=== PATIENT | male | born 1940 | race Caucasian/White ===

== ENCOUNTER 2023-01-07 07:53 | Day surgery (SDC) | payer MEDICARE, OTHER ==
[~2023-01-07] VITALS: Ht 172.7 cm; Wt 93.2 kg
[~2023-01-07 07:53] MED LIST: FISH OIL 1,001000 MG PO; LIPITOR40 MG PO; VENTOLIN HFA18 GM INH
[2023-01-07 08:16] VITALS: BP 139/88
[2023-01-07] MEDS ORDERED: SYMBICORT 16010.2 GM INH (08:20)
--- NOTE | 2023-01-07 10:37 | NUR ---
01/07/23 Rachel Calvillo 1027- PT ARRIVES TO PACU, LEFT LATERAL POSITION. LR INFUSING TO RH IV. O2 AT 3L PER NC, ALL MONITORS APPLIED. ABD ROUND AND FIRM, ENCOURAGED TO PASS GAS TO DECREASE CRAMPING. PT DENIES PAIN AND NAUSEA AT THIS TIME. PT AWAKE ON ARRIVAL TO PACU, BUT RESTING INTERMITTENTLY. WILL CONTINUE TO MONITOR. 1035- PT AWAKE OFF AND ON, CONTINUES TO DENY ANY COMPLAINTS AT THIS TIME. IV FLUIDS CONTINUE TO INFUSE, O2 REMAINS IN PLACE.
[2023-01-07 11:09] VITALS: BP 147/74
--- NOTE | 2023-01-10 08:29 | OR ---
[facility] [address], [place] [address] Signed DATE OF OPERATION: 01/07/2023 SURGEON: Barb Tobar MD PREOPERATIVE DIAGNOSES: 1. 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 2. Family history of colon cancer (brother). POSTOPERATIVE DIAGNOSES: 1. 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 2. Antral gastritis. 3. Extensive sigmoid and left-sided diverticulosis. 4. Multiple polyps (five). PROCEDURES: 1. Esophagogastroduodenoscopy with biopsy. 2. Total colonoscopy to cecum with cold snare polypectomy x2, cold morcellation polypectomy x3. ANESTHESIA: Intravenous sedation fentanyl 150 mcg and Versed 5 mg total. INDICATIONS: This 82-year-old white man is a patient by DELROY Ordonez from [place], [place] and is referred initially for upper endoscopy. The patient has had thrush related to persistent use of Advair under the direction of others, having been treated for eosinophilic esophagitis. He had been seen in 2016 and underwent upper endoscopy, ended with dilation from my understanding and had the eosinophilic esophagitis as well. He has not recently been taking topical steroids. He has been taking PPI medication in the past; he currently takes Symbicort inhaler on a daily basis by inhalation and not swallowing. Additionally, the patient has a family history of colon cancer in his brother. The patient was unaware of this, though I was aware of his brother who had it. On that basis, colonoscopy was additionally recommended. The risk of bleeding, infection, and perforation related upper endoscopy and colonoscopy was reviewed with him. He understands and wished to proceed. FINDINGS: Electronically Signed By: BARB TOBAR MD 01/10/23 0829 PATIENT NAME: BELKIS LORD OPERATIVE REPORT DATE OF : 44 REPORT #: [id number] PHYSICIAN: BARB TOBAR MD PCP: KHURRAM GUTIÉRREZ REPORT IS CONFIDENTIAL AND NOT TO BE RELEASED WITHOUT AUTHORIZATION [facility] [address], [place] [address] Signed Upper endoscopy did show a hiatal hernia and chronic distal esophagitis, but no sign of Lamb's epithelium stricture or stigmata of the eosinophilic esophagitis. There was antral gastritis. CLOtest was -30 minutes post procedure. As regards to colonoscopy, the colon was well prepped. There were numerous diverticula of the sigmoid and left colon. Additionally, five polyps in aggregate that were all excised without problem. DESCRIPTION OF PROCEDURE: The patient was brought to the endoscopy suite, given topical lidocaine hypopharyngeal anesthesia and placed in lateral decubitus position. He was given intravenous sedation to the point of slurred speech and nystagmus. A bite block was placed. An Olympus video upper endoscope was passed in the hypopharynx. The vocal cords were normal. Scope was passed in the esophagus throughout its length, it appeared normal, but there was mild inflammation of the distal esophagus. The scope was passed to the stomach, which was insufflated with air. Rugal folds were normal. The antrum had mild chronic inflammation. The pylorus was normal. Scope was passed through and into the duodenum, which was normal. Biopsies were taken of the duodenum to assess for celiac disease. The scope was withdrawn and biopsies then taken of the antrum for both LULU and pathologic testing. Retroflexed view was undertaken showing a sizable hiatal hernia. The scope was straightened withdrawn and biopsies then taken of the distal esophagus; there was no sign of stricture, neoplasm or Lamb's epithelium, however. Further withdrawal of scope to the mid esophagus did not show a feline type esophagus, though there was mild inflammation. Biopsies were obtained. The scope was then withdrawn and removed. Plans were then made for colonoscopy. Additional sedation was given and digital rectal examination was performed, which was normal. An Olympus video colonoscope was passed in the rectum and manipulated throughout the colon noting numerous diverticula of the sigmoid and left colon. Scope was ultimately advanced to the cecum. Ileocecal valve and appendiceal orifice were normal. A small polyp was noted in the junction between the cecum and the right colon. This was excised with cold snare technique. Further withdrawal showed another polyp in the mid ascending colon. This was excised with cold morcellation technique. Further withdrawal to the mid transverse colon showed another small polyp excised also by cold snare technique. Further withdrawal showed once again left colonic diverticulosis and in the region of the rectosigmoid, a small polyp adjacent to another small polyp, both excised with cold morcellation technique. Retroflexed view of the rectum was normal. Scope was removed and the patient was taken to the recovery room in good condition. CONCLUSION DIAGNOSES: Electronically Signed By: BARB TOBAR MD 01/10/23 0829 PATIENT NAME: BELKIS LORD OPERATIVE REPORT DATE OF : 44 REPORT #: [id number] PHYSICIAN: BARB TOBAR MD PCP: KHURRAM GUTIÉRREZ REPORT IS CONFIDENTIAL AND NOT TO BE RELEASED WITHOUT AUTHORIZATION [address] [address] Signed 1. Hiatal hernia with distal esophagitis. No clear evidence of eosinophilic esophagitis. Pathology pending. 2. Multiple polyps of colon and diverticulosis. PLAN: 1. We would initiate PPI medication, if the patient has symptoms related to his reflux. He is not currently taking PPI medication and the inhalational steroids he is taking are not swallowed, but rather inhaled. He has no current complaint of reflux symptoms or dysphagia. If he does, then would initiate PPI medication at minimum and consider fluticasone two puffs swallowed daily x3 weeks with one week break, particularly given prior history of yeast esophagitis. 2. Repeat colonoscopy in 5 years if clinically appropriate. Maintain a high-fiber diet. He will return to the ongoing care of DELROY Ordonez. MD DENTON Elizabeth/IAM /[id number] cc: DELROY Ordonez Copies: KHURRAM GUTIÉRREZ ~ Electronically Signed By: BARB TOBAR MD 01/10/23 0829 PATIENT NAME: BELKIS LORD OPERATIVE REPORT DATE OF : 44 REPORT #: [id number] PHYSICIAN: BARB TOBAR MD PCP: KHURRAM GUTIÉRREZ REPORT IS CONFIDENTIAL AND NOT TO BE RELEASED WITHOUT AUTHORIZATION
--- NOTE | 2023-01-13 15:09 | PATH ---
[facility] [address] [place], [place] [address] Signed SPECIMEN(S): A DUODENAL BIOPSY SPECIMEN(S): B ANTRUM BIOPSY SPECIMEN(S): C LOWER ESOPHAGEAL BIOPSY SPECIMEN(S): D MIDDLE ESOPHAGEAL BIOPSY SPECIMEN(S): E CECUM COLON POLYP SPECIMEN(S): F ASCENDING/RIGHT COLON POLYP SPECIMEN(S): G HEPATIC FLEXURECOLON POLYP SPECIMEN(S): H TRANSVERSE COLON POLYP SPECIMEN(S): I RECTOSIGMOID POLYP SPECIMEN SOURCE: A. DUODENAL BIOPSY B. ANTRUM BIOPSY C. LOWER ESOPHAGEAL BIOPSY D. MIDDLE ESOPHAGEAL BIOPSY E. CECUM COLON POLYP F. ASCENDING/RIGHT COLON POLYP G. HEPATIC FLEXURECOLON POLYP H. TRANSVERSE COLON POLYP I. RECTOSIGMOID POLYP CLINICAL HISTORY: Colonoscopy/EGD. History of eosinophilic esophagitis and dilation; family history of colon cancer (brother). FINAL PATHOLOGIC DIAGNOSIS: A. Duodenal biopsy: - Benign duodenal mucosa, negative for specific diagnostic abnormality. B. Antrum biopsy: - Benign gastric-type mucosa with focal slight chronic inflammation. - Negative for evidence of Helicobacter organisms on routine HE-stained sections. C. Lower esophageal biopsy: - Benign esophageal mucosa with reactive features with focal epithelial eosinophils (measuring up to 17 per high power field). - Negative for glandular mucosa. - See comment. D. Middle esophageal biopsy: - Benign esophageal mucosa, negative for increased epithelial eosinophils. E. Cecum colon polyp: - Tubular adenoma (one fragment). PATIENT NAME: BELKIS KENDALL LUZ PATHOLOGY DATE OF : 44 REPORT #: [id number] PHYSICIAN: MAZIN MARISCAL PCP: KHURRAM GUTIÉRREZ REPORT IS CONFIDENTIAL AND NOT TO BE RELEASED WITHOUT AUTHORIZATION [facility] [address] [place], [place] [address] Signed F. Ascending/right colon polyp: - Tubular adenoma (one fragment). G. Hepatic flexure colon polyp: - Tubular adenoma (three fragments). H. Transverse colon polyp: - Tubular adenoma (one fragment). I. Rectosigmoid polyp: - Hyperplastic polyp (two fragments). JR:clv COMMENT: C: The increased epithelial eosinophils at the distal esophagus can be seen with reflux esophagitis and eosinophilic esophagitis. Clinical correlation is requested. MICROSCOPIC EXAMINATION: Histologic sections of all submitted blocks are examined by light microscopy. These findings, together with the gross examination, support the pathologic diagnosis. GROSS DESCRIPTION: A. The specimen, labeled and designated "Elyssaagle, C, duodenum (NOS) biopsy," is received in formalin and consists of 2 vega soft tissue fragments measuring 0.3 x 0.5 cm in greatest dimension, all specimens are submitted entirely in (A1). B. The specimen, labeled and designated "Elyssaagle, C, stomach, antrum/pylorus biopsy," is received in formalin and consists of 1 vega soft tissue fragment measuring 0.2 x 0.4 cm and is submitted entirely in (B1). C. The specimen, labeled and designated "Elyssaagle, C, lower esophagus biopsy," is received in formalin and consists of 2 vega-white soft tissue fragments measuring 0.3 x 0.7 cm in greatest dimension, all specimens are submitted entirely in (C1). D. The specimen, labeled and designated "Elyssaagle, C, middle esophagus biopsy," is received in formalin and consists of 3 vega soft tissue fragments measuring 0.2 x 0.9 cm in greatest dimension, all specimens are submitted entirely in (D1). E. The specimen, labeled and designated "Lisa Kendall, cecum colon polyp," is received in formalin and consists of 1 vega soft polypoid tissue fragment measuring 0.5 x 0.6 cm and is submitted entirely in (E1). PATIENT NAME: BELKIS KENDALL PATHOLOGY DATE OF : 44 REPORT #: [id number] PHYSICIAN: MAZIN MARISCAL PCP: KHURRAM GUTIÉRREZ REPORT IS CONFIDENTIAL AND NOT TO BE RELEASED WITHOUT AUTHORIZATION [facility] [address] [place], [place] [address] Signed F. The specimen, labeled and designated "Lisa Kendall, ascending/right colon polyp," is received in formalin and consists of 2 vega soft tissue fragments measuring 0.3 x 0.3 cm in greatest dimension, all specimens are submitted entirely in (F1). G. The specimen, labeled and designated "Lisa Kendall, hepatic flexure colon polyp," is received in formalin and consists of 4 vega-brown soft tissue fragments measuring 0.4 x 0.4 cm in greatest dimension, all specimens are submitted entirely in (G1). H. The specimen, labeled and designated "Lisa Kendall, transverse colon polyp," is received in formalin and consists of 4 vega-brown soft tissue fragments measuring 0.2 x 0.4 cm in greatest dimension, all specimens are submitted entirely in (H1). I. The specimen, labeled and designated "Lisa Kendall, rectosigmoid polyp," is received in formalin and consists of 2 vega soft tissue fragments measuring 0.3 x 0.4 cm in greatest dimension, specimens are submitted entirely in (I1). MMA (under the direct supervision of a pathologist) The Gross Description was prepared using a voice recognition system. The report was reviewed for accuracy; however, sound-alike word errors, addition and/or deletions may occur. If there is any question about this report, please contact Client Services. PERFORMING LABORATORY: Technical component was performed by [facility], [address] [place] [id number] (CLIA# [id number]). Professional interpretation was performed by [facility] [address] [address] (CLIA#: [id number]). Diagnostician: Sammy Hawthorne MD Pathologist Electronically Signed 01/13/2023 Copies: ~ PATIENT NAME: BELKIS KENDALL PATHOLOGY DATE OF : 44 REPORT #: [id number] PHYSICIAN: [facility] PCP: KHURRAM GUTIÉRREZ REPORT IS CONFIDENTIAL AND NOT TO BE RELEASED WITHOUT AUTHORIZATION
== END 2023-01-07 11:25 | disposition home or self-care (01) ==
LOC: OPS 07:53 → DS 07:53 → OPS 09:10 → DS 09:15 → OPS 11:25
PROVIDERS: ATTEND Surgery
PROC: 0DB38ZX Excision of Lower Esophagus, Via Natural or Artificial Opening Endoscopic, Diagnostic (ICD-10-PCS; 2023-01-07)
PROC: 0DBK8ZZ Excision of Ascending Colon, Via Natural or Artificial Opening Endoscopic (ICD-10-PCS; 2023-01-07)
PROC: 0DBL8ZZ Excision of Transverse Colon, Via Natural or Artificial Opening Endoscopic (ICD-10-PCS; 2023-01-07)
PROC: 0DBN8ZZ Excision of Sigmoid Colon, Via Natural or Artificial Opening Endoscopic (ICD-10-PCS; 2023-01-07)
PROC: 0DB98ZX Excision of Duodenum, Via Natural or Artificial Opening Endoscopic, Diagnostic (ICD-10-PCS; principal; 2023-01-07 09:10)
PROC: 0DB68ZX Excision of Stomach, Via Natural or Artificial Opening Endoscopic, Diagnostic (ICD-10-PCS; 2023-01-07 09:10)
DX: Z12.11 Encounter for screening for malignant neoplasm of colon (principal); B37.0 Candidal stomatitis; Z80.0 Family history of malignant neoplasm of digestive organs; K63.5 Polyp of colon; K57.30 Diverticulosis of large intestine without perforation or abscess without bleeding; K29.70 Gastritis, unspecified, without bleeding; K44.9 Diaphragmatic hernia without obstruction or gangrene; K21.00 Gastro-esophageal reflux disease with esophagitis, without bleeding; D12.2 Benign neoplasm of ascending colon; D12.0 Benign neoplasm of cecum; D12.3 Benign neoplasm of transverse colon
CPT/HCPCS: 88305; 99153; G0500; J2250; J3010; J7121